=== PATIENT | female | born 1955 | race Caucasian/White ===

== ENCOUNTER 2016-05-04 21:23 | Day surgery (SDC) | payer MEDICARE ==
[~2016-05-04] VITALS: Ht 160 cm; Wt 96.2 kg
[2016-05-05 00:51] LABS: BASOPHILS 0.7 % (0.0-2.0); EOSINOPHILS 1.9 % (0-7); HEMATOCRIT 42.3 % (36.0-48.0); IMMATURE GRANULOCYTES 0.4 % (0-5); LYMPHOCYTES 15.2 % (15-50); MCH 31.5 pg (26.0-34.0); MCHC 33.1 g/dL (31.0-37.0); MCV 95.1 fL (80.0-100.0); MONOCYTES 5.8 % (2-11); PLATELET COUNT 213 10x3/uL (130-400); RBC 4.45 10x6/uL (4.00-5.40); RDW 14.1 % (11.5-14.5); WBC 10.9 10x3/uL (4.8-10.8)
[2016-05-05 01:04] LABS: ALBUMIN 3.8 g/dL (3.4-5.0); ANION GAP 10.2 mmol/L (8-16); BILIRUBIN - TOTAL 0.21 mg/dL (0.2-1.3); CALCIUM 9.2 mg/dL (8.5-10.1); CARBON DIOXIDE 29.9 mmol/L (21.0-32.0); INR 0.97 (0.85-1.17); MAGNESIUM - SERUM 1.8 mg/dL (1.8-2.4); POTASSIUM - SERUM 4.1 mmol/L (3.5-5.1); PROTEIN - SERUM 7.5 g/dL (6.4-8.2); PROTIME 12.8 SECONDS (11.6-15.0)
--- NOTE | 2016-05-05 02:45 | NUR ---
RECEIVED PT VIA WC FROM ER, PT TO ROOM 1214, PT TRANSFERS SELF TO BED WITH NO DIFFICULTY, IV IN RIGHT FA INTACT WITH NO REDNESS OR EDEMA, D5LR TO PUMP INFUSING AT 75ML/HR, ADMITTING ASSESSMENT, HISTORY AND MED REC INITIATED
[2016-05-05] MEDS ORDERED: ADVAIR 250/501 DISK INH (02:57)
[2016-05-05] MEDS ORDERED: COMBIVENT RESPIM4 GM INH (02:58)
[2016-05-05] MEDS ORDERED: SPIRIVA RESPIMAT4 G1 INH (03:03)
[2016-05-05] MEDS ORDERED: HYDROCODONE-APA1 TAB PO (03:05)
[2016-05-05] MEDS ORDERED: SOMA350 MG PO (03:08)
[2016-05-05 03:28] VITALS: BP 117/80; BMI 37.6
--- NOTE | 2016-05-05 03:34 | NUR ---
ADMITTING ASSESSMENT, HISTORY AND MED REC FINISHED, PT UP TO BR WITH ASSISTANCE, GAIT STEADY, VOIDED BY SELF WITH NO DIFFICULTY, PT BACK TO BED, PT INFORMED THAT I WILL INITIATED MORPHINE AUTOMOTIVE UPHOLSTERER, PT RATES LEFT WRIST PAIN 10/01, PT ORIENTED TO ROOM, BED IN LOW POSITION, SIDE RAILS X 2, CALL LIGHT IN REACH
--- NOTE | 2016-05-05 03:45 | NUR ---
MORPHINE READINESS PARAPROFESSIONAL INITIATED, PT INST ON AND VERBALIZES UNDERSTANDING OF READINESS PARAPROFESSIONAL, PT PUSHES READINESS PARAPROFESSIONAL AT THIS TIME, PT PROVIDED FAN FOR COMFORT, WET WASH CLOTH PROVIDED FOR DRY MOUTH, PT INST AGAIN ON NPO, DENIES FURTHER NEEDS AT THIS TIME
--- NOTE | 2016-05-05 04:05 | NUR ---
THIS RN CALLED LYNNETTE LEE RN, TO SEE WHO RESP WAS ON, LYNNETTE LEE RN STATES THAT SHE WOULD NOTIFY RESP FOR ME
--- NOTE | 2016-05-05 04:07 | NUR ---
PT SIGNED RELEASE OF RESPONSIBILITY FOR BED/CHAIR ALARM, PT INST ON FALL RISKS, VERBALIZES UNDERSTANDING, YELLOW BAND AND SKID SOCKS APPLIED, PT STATES "I BETTER GET UP TO THE BR AGAIN, PT UP TO BR, GAIT STEADY, VOIDED BY SELF WITH NO DIFFICULTY, PT BACK TO BED, WET WARM WASH CLOTH PROVIDED FOR HAND, RESP TO ROOM, PT DENIES FURTHER NEEDS
--- NOTE | 2016-05-05 04:09 | NUR ---
RESP PAGED W/IMMEDIATE RETURN OF PAGE. NOTIFIED OF PT'S SCHEDULED UPDRAFT DUE AT 3AM, HAS NOT REC'D YET. ROOM NUMBER AND NAME GIVEN TO RESP THERAPIST.
--- NOTE | 2016-05-05 06:10 | NUR ---
PT MECHANICAL ARTIST LIGHT, PT UP TO BR, VOIDED BY SELF WITH NO DIFFICULTY, PT BACK TO BED, DENIES FURTHER NEEDS AT THIS TIME
--- NOTE | 2016-05-05 07:00 | NUR ---
SHIFT REPORT TO DAY SHIFT
[2016-05-05 08:43] VITALS: Ht 160 cm; Wt 96.2 kg
--- NOTE | 2016-05-05 08:43 | NUR ---
PT IS TAKEN TO OR VIA STRETCHER. PRE OP MEDS WERE GIVEN AND SURGICAL PACKET WAS COMPLETED.
[2016-05-05] MEDS ORDERED: PERCOCET 10/3251 TA1 PO (11:01)
[2016-05-05 11:18] VITALS: BP 129/96
--- NOTE | 2016-05-05 12:00 | NUR ---
PT WAS RECEIVED FROM SURGERY ON A STRETCHER. MOVED HER TO HER BED.SHE HAS A SPLINT ON HER LEFT ARM WITH A SLING. SHE CAN MOVE HER FINGERS AND HAS GOOD CAPILLARY REFILL LEFT HAND. VSS. STABLE. NEW ORDERS NOTED.
--- NOTE | 2016-05-05 13:00 | NUR ---
PT UP TO VOID. SHE IS DOING WELL. SHE STATES THAT SHE IS NOT HAVING ANY PAIN AT THIS TIME.
--- NOTE | 2016-05-05 14:12 | NUR ---
TRIED TO BEEP DR LANCE X 2. NO ANSWER. CALLED HIS CABIN CLEANING SUPERVISOR, BRITTANEY AND SHE STATES THAT SHE WILL DISCHARGE HER.
--- NOTE | 2016-05-05 15:00 | NUR ---
PT WAS DISCHARGED AND TAKEN TO THE FRONT DOOR BY WHEELCHAIR TO HER VEHICLE. PTS DISCHARGE INSTRUCTIONS WERE DISCUSSED AND GIVEN HANDOUTS TO HER AND FU APPT AND PRESCRIPTIONS.
--- NOTE | 2016-05-24 11:14 | OP ---
PATIENT NAME: ADARSH VALDERRAMA MEDICAL RECORD: [id number] :57 LOCATION:[facility] ADMISSION DATE: SURGEON: ESHA LANCE MD DATE OF OPERATION: 05/05/2016 PREOPERATIVE DIAGNOSIS: Distal radius fracture. POSTOPERATIVE DIAGNOSIS: Distal radius fracture. PROCEDURE: Open reduction internal fixation of distal radius fracture. SURGEON: Esha Lance MD ANESTHESIA: General. INTRAOPERATIVE COMPLICATIONS: None. SUMMARY OF PATHOLOGIC FINDINGS: Displaced distal radius fracture consistent with the preoperative diagnosis. OPERATIVE SUMMARY IN DETAIL: After obtaining the appropriate preoperative orthopedic surgery consent as well as anesthetic consultation, evaluation and clearance, the patient was brought to the operating room and placed in the operating table in supine position. After adequate general laryngeal mask airway was administered, tourniquet was placed about the proximal aspect of the right upper extremity. Right upper extremity was then prepped and draped in routine sterile fashion. The arm was elevated, exsanguinated and tourniquet was inflated to 250 mmHg. Curvilinear incision was made in keeping with Reinaldo's volar approach, taken down along the flexor carpal radialis. A flap was then carried back down past the carpal tunnel, which was released. The fracture was then identified. The fracture was reduced and held in place provisionally by a K-wire. At this point, the [place] Stratus plate was then utilized and placed under direct fluoroscopy. Serial and sequential drill and fill was utilized with a combination of compression and locking screws. This resulted in excellent anatomic yazidi of the distal radius. Having completed this, AP and lateral views were sent for radiologist's verification. The wound was copiously irrigated and then closed with 2-0 Vicryl followed by 4-0 Prolene in running fashion. Sterile dressings were applied. The tourniquet was deflated. A volar splint was applied. The patient was awakened, taken to recovery room in stable condition. All final needle and sponge counts were correct. TRANSINT:[id number] Voice Confirmation ID: [id number] DOCUMENT ID: [id number] ESHA LANCE MD at 1114 CC: [id number] DICTATION DATE: 05/23/16 1840 FRONT OFFICE AGENT: 05/23/16 2345 [facility] 05/05/16 [facility] [address] [place] [address]
== END 2016-05-05 15:00 | disposition home or self-care (01) ==
LOC: OBSVTIME → D.ER 21:23 → D.WS 05-05 01:06 → OBSVTIME 05-05 01:06 → EDSTATUS 05-05 11:30 → D.ER 05-05 15:00 → D.WS 05-05 15:00
PROVIDERS: Emergency Medicine
DX: S52.502A Unspecified fracture of the lower end of left radius, initial encounter for closed fracture (principal); W07.XXXA Fall from chair, initial encounter; F17.200 Nicotine dependence, unspecified, uncomplicated; I25.10 Atherosclerotic heart disease of native coronary artery without angina pectoris; J44.9 Chronic obstructive pulmonary disease, unspecified; Z95.1 Presence of aortocoronary bypass graft

== ENCOUNTER 2016-07-28 07:02 | Day surgery (SDC) | payer MEDICARE ==
[2016-07-27 11:07] LABS: HEMATOCRIT 44.2 % (36.0-48.0); HEMOGLOBIN 14.7 g/dL (12-16); MCHC 33.3 g/dL (31.0-37.0); MCV 96.1 fL (80.0-100.0); MEAN PLATELET VOLUME 10.4 fL (7.4-10.4); RBC 4.6 10x6/uL (4.00-5.40); RDW 13.2 % (11.5-14.5); WBC 6.5 10x3/uL (4.8-10.8)
[~2016-07-28 07:02] MED LIST: ADVAIR 250/501 DISK INH; COMBIVENT RESPIM4 GM INH; HYDROCODONE-APA1 TAB PO; PERCOCET 10/3251 TA1 PO; SOMA350 MG PO; SPIRIVA RESPIMAT4 G1 INH
[2016-07-28 08:07] VITALS: BP 120/84; BMI 35.5
[2016-07-28] MEDS ORDERED: HYDROCODONE-APA1 TAB PO (10:44)
--- NOTE | 2016-07-28 12:07 | OP ---
PATIENT NAME: ADARSH VALDERRAMA MEDICAL RECORD: [id number] :57 LOCATION:[facility] ADMISSION DATE: SURGEON: ESHA LANCE MD DATE OF OPERATION: 07/28/2016 PREOPERATIVE DIAGNOSIS: Painful hardware of the left wrist. POSTOPERATIVE DIAGNOSIS: Painful hardware of the left wrist. PROCEDURE: Removal of distal radial plate of the left wrist. SURGEON: Esha Lance MD. ANESTHESIA: General. INTRAOPERATIVE COMPLICATIONS: None. SUMMARY OF PATHOLOGIC FINDINGS: Essentially none. OPERATIVE SUMMARY IN DETAIL: After obtaining the appropriate preoperative orthopedic surgery consent as well as anesthetic consultation, evaluation and clearance, the patient was brought to the operating room and placed on the operating table in supine position. After general laryngeal mask was administered, tourniquet was placed about the proximal aspect of the left upper extremity. Left upper extremity was then prepped and draped in routine sterile fashion. The arm was elevated and exsanguinated, tourniquet inflated to 350 mmHg. Radiographs were taken before incision, both AP and lateral planes, submitted for radiology review. Incision was made, taken down to the level of the median nerve, which was identified and protected throughout the case. Having completed this, the flexor tendons in their entirety were held aside using a dull Weitlaner retractor. Dissection was then carried down to the plate itself, it was completely exposed. Serial and sequential removal of the screws were then followed by removal of the plate. X-ray was taken again, both AP and lateral planes, showed that all hardware had been removed. The wound was copiously irrigated and closed with 2-0 Vicryl followed by 4-0 Prolene in running fashion. Sterile dressings were applied. Tourniquet was deflated. The patient was awakened and taken to recovery room in stable condition. All final needle and sponge counts were correct. TRANSINT:[id number] Voice Confirmation ID: [id number] DOCUMENT ID: [id number] CASI XIONG, ESHA DAHL at 1207 CC: [id number] DICTATION DATE: 07/28/16 0948 POPULATION HEALTH COACH: 07/28/16 [id number] [place] [address]
--- NOTE | 2016-07-28 13:04 | NUR ---
8895 DISCHARGE INSTRUCTIONS REVIEWED WITH PATIENT; VERBALIZED UNDERSTANDING
[2016-11-22] MEDS ORDERED: COMBIVENT RESPIM4 GM INH (13:41)
== END 2016-07-28 11:20 | disposition home or self-care (01) ==
LOC: D.OPS 07:02
PROVIDERS: Anesthesiology
DX: T84.84XA Pain due to internal orthopedic prosthetic devices, implants and grafts, initial encounter (principal); J44.9 Chronic obstructive pulmonary disease, unspecified; G47.30 Sleep apnea, unspecified; Z95.5 Presence of coronary angioplasty implant and graft; M19.90 Unspecified osteoarthritis, unspecified site

== ENCOUNTER 2016-11-24 05:57 | Day surgery (SDC) | payer MEDICARE ==
[2016-11-22 14:17] LABS: HEMATOCRIT 42.4 % (36.0-48.0); MCH 31.5 pg (26.0-34.0); MCV 95.5 fL (80.0-100.0); MEAN PLATELET VOLUME 10.7 fL (7.4-10.4); RBC 4.44 10x6/uL (4.00-5.40); RDW 13.3 % (11.5-14.5); WBC 6.6 10x3/uL (4.8-10.8)
[2016-11-22 14:37] LABS: CALC OSMOLALITY 282 mosm/kg (275-300); CALCIUM 8.9 mg/dL (8.5-10.1); CARBON DIOXIDE 30.8 mmol/L (21.0-32.0); CHLORIDE - SERUM 104 mmol/L (98-107); CREATININE - SERUM 0.7 mg/dL (0.6-1.3); GLUCOSE 102 mg/dL (74-106); POTASSIUM - SERUM 4.4 mmol/L (3.5-5.1); SODIUM 142 mmol/L (136-145); UREA NITROGEN 13 mg/dL (7-18); eGFR NON AFRICAN AMERICAN 90 mL/min (90-120)
[~2016-11-24] VITALS: Ht 160 cm; Wt 86.2 kg
[2016-11-24 06:19] VITALS: BP 109/69; Ht 160 cm; Wt 86.2 kg
[2016-11-24] MEDS ORDERED: HYDROCODONE-APA1 TAB PO (08:19)
--- NOTE | 2016-11-24 10:06 | NUR ---
0955 DISCHARGE INSTRUCTIONS GIVEN. PRESCRIPTION FOR NORCO GIVEN. NO QUESTIONS OR CONCERNS AT THIS TIME. ESCORTED OUT BY VOLUNTEER.
--- NOTE | 2016-11-27 16:46 | OP ---
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 PROCEDURE: Cubital tunnel release, left elbow. SURGEON: Esha Lance MD. ANESTHESIA: General. INTRAOPERATIVE COMPLICATIONS: None. SUMMARY OF PATHOLOGIC FINDINGS: The patient had tight contractures about the ulnar nerve at the elbow consistent with preoperative EMGs and NCVs. OPERATIVE SUMMARY IN DETAIL: After obtaining the appropriate preoperative orthopedic surgery consent as well as anesthetic consultation, evaluation and clearance, the patient was brought to the operating room and placed on the operating table in supine position. After general laryngeal mask was administered, tourniquet was placed about the proximal aspect of the left upper extremity. The patient's left upper extremity was prepped and draped in routine sterile fashion. The arm was elevated, exsanguinated and tourniquet was inflated to 250 mmHg. A curvilinear incision was made between the medial epicondyle and olecranon. This was taken down gently to the fascial plane covering the ulnar nerve, which was identified in its entirety and incised using a very small pair of scissors and then, release of all fibrous adhesions about the ulnar nerve was completed. The wound was irrigated and closed with 2-0 Vicryl followed by skin peter. Sterile dressings were applied. The patient was awakened, taken to recovery in stable condition. All final needle and sponge counts were correct. TRANSINT:[id number] Voice Confirmation ID: [id number] DOCUMENT ID: [id number] ESHA LANCE MD at 1646 CC: [id number] DICTATION DATE: 11/24/16 0947 RETAIL GREETER: 11/24/16 1050 [facility] 11/24/[address] [address]
== END 2016-11-24 09:55 | disposition home or self-care (01) ==
LOC: D.OPS 05:57 → D.PAN 08:55 → D.OPS 08:55 → D.PAN 09:00 → D.OPS 09:55
PROVIDERS: Anesthesiology
DX: G56.22 Lesion of ulnar nerve, left upper limb (principal); F17.200 Nicotine dependence, unspecified, uncomplicated; J44.9 Chronic obstructive pulmonary disease, unspecified; Z95.5 Presence of coronary angioplasty implant and graft; G47.30 Sleep apnea, unspecified; Z01.812 Encounter for preprocedural laboratory examination

== ENCOUNTER → 2019-02-21 09:08 | Outpatient (CLI) | payer MEDICARE ==
[2016-11-24 06:19] VITALS: BMI 33.7
--- NOTE | 2019-02-27 14:07 | ST ---
PATIENT:ADARSH VALDERRAMA MEDICAL RECORD: [id number] SEX: F LOCATION:[facility] ORDER #: ADMISSION DATE: 02/21/19 AGE OF PATIENT: 63 REFERRING PHYSICIAN: INTERPRETING PHYSICIAN: ANGY DIEHL MD DATE OF SERVICE: 02/21/2019 INDICATION: Angina, coronary artery disease, shortness of breath, obesity. TECHNIQUE: The patient was exercised on standard Lexiscan protocol with 33 mCi of sestamibi injected at peak stress, 11 mCi used previously for rest images. FINDINGS: Gated SPECT reveals preserved ejection fraction at 74% with good thickening and brightening throughout all segments. SPECT imaging Cardiolite was used as myocardial perfusion agent. There appears to be a fixed perfusion defect inferiorly compatible with previous inferior myocardial infarction; however, this could be artifactual secondary to her size and diaphragmatic attenuation especially, due to the fact that there is good thickening and brightening of the inferior segments on gated SPECT. The remaining segments with homogeneous uptake at rest and stress. OVERALL IMPRESSION: Minimally abnormal nuclear stress test only showing a fixed perfusion defect inferiorly on SPECT imaging, most likely artifactual from diaphragmatic attenuation and the patient's size. Either way, there is no evidence of reversible ischemia present and ejection fraction preserved at 74%. Continue cardiac risk factors. TRANSINT:[id number] Voice Confirmation ID: [id number] DOCUMENT ID: [id number] ANGY DIEHL MD at 1407 CC: RIGOBERTO FRANKS MD [id number] DICTATION DATE: 02/22/19 1453 WASTE WATER OPERATOR: 02/23/19 0756 [facility] CLI 02/21/[address] [address]
--- NOTE | 2019-02-27 14:07 | EC ---
PATIENT:ADARSH VALDERRAMA DATE OF SERVICE: 02/21/19 SEX: F MEDICAL RECORD: [id number] DATE OF : 57 [facility] AGE OF PAT[facility]: 63 ADMISSION DATE: 02/21/19 REFERRING PHYSICIAN: INTERPRETING PHYSICIAN: ANGY GARCIA MD ECHOCARDIOGRAM REPORT ECHO CHARGES 4 ECHO COMPLETE Date: 02/21/19 CLINICAL DIAGNOSIS: ANGINA/SOB/ECHEVARRIA H/O CAD/COPD ECHOCARDIOGRAPHIC MEASUREMENTS (adult normal given) AC root (d.<3.7cm) 2.7 cm LV Septum d (<1.2 cm> 1.4 cm Valve Excursion 1.1 cm LV Septum (systole) 1.9 cm Left Atria (s.<4.0cm> 3.1 cm LVPW d(<1.2cm) 1.2 cm RV (d.<2.3cm) 2.4 cm LVPW (sytole) 1.8 cm LV diastole(<5.6CM) 6.0 cm MV E-F(>70mm/sec) cm LV systole 3.7 cm LVOT Diameter 1.8 cm MV exc.(>10mm) cm Est.ejection fraction (50-75%) % DOPPLER: LVIT cm/sec A 83.0 cm/sec E 90.0 cm/sec LA cm/sec RVSP 16.0 mmHg LVOT 95.0 cm/sec AOP1/2T m/s Asc. Ao 120 cm/sec RVOT 47.0 cm/sec RA cm/sec PA 89.0 cm/sec AV Gradient Peak 5.8 mmHg AV Mean 3.2 mmHg AV Area 2.1 cm MV Gradient Peak 3.5 mmHg MV Mean 1.7 mmHg MV Area cm COMMENTS: OP - HC Refurbish Technician: 1 DALE SANTOSOE Editor Map: 1 Dr. Garcia TAPE# PACS Pericardial Effusion N DATE OF SERVICE: PROCEDURE: Echocardiogram. FINDINGS: 1. Left ventricular chamber size is mildly dilated. Left ventricular systolic function is preserved at 55% to 60%. 2. Left atrium, right atrium, and right ventricle chamber sizes are within normal limits. 3. Valvular structures have normal structure and motion. ECHOCARDIOGRAM REPORT [id number] ADARSH VALDERRAMA 4. Doppler interrogation only reveals trace to mild tricuspid regurgitation, no other valvular insufficiency or stenosis. Pulmonary systolic pressure is normal estimated 16 mmHg. 5. No evidence of pericardial effusion or left ventricular thrombus. TRANSINT:[id number] Voice Confirmation ID: [id number] DOCUMENT ID: [id number] ANGY GARCIA MD at 1407 CC: [id number] DICTATION DATE: 02/22/19 1053 DIETITIAN TEACHING: 02/22/19 1133 [facility] CLI 02/21/19 [id number] [place] [address]
== END | disposition home or self-care (01) ==
LOC: D.HCCECHO 09:08
PROVIDERS: ATTEND Internal Medicine Interventional Cardiology
DX: I25.10 Atherosclerotic heart disease of native coronary artery without angina pectoris (principal); R06.09 Other forms of dyspnea

== ENCOUNTER 2019-10-28 07:36 | Day surgery (SDC) | payer MEDICARE ==
[2019-10-25 10:13] LABS: HEMATOCRIT 42.9 % (36.0-48.0); HEMOGLOBIN 14.1 g/dL (12-16); MCH 31.8 pg (26.0-34.0); MCHC 32.9 g/dL (31.0-37.0); MCV 96.8 fL (80.0-100.0); MEAN PLATELET VOLUME 10.3 fL (7.4-10.4); RBC 4.43 10x6/uL (4.00-5.40); RDW 13.4 % (11.5-14.5); WBC 5.6 10x3/uL (4.8-10.8)
[2019-10-25 10:30] LABS: CALC OSMOLALITY 279 mosm/kg (275-300); CALCIUM 8.8 mg/dL (8.5-10.1); CARBON DIOXIDE 29.6 mmol/L (21.0-32.0); CHLORIDE - SERUM 104 mmol/L (98-107); CREATININE - SERUM 0.6 mg/dL (0.6-1.3); GLUCOSE 107 mg/dL (74-106); POTASSIUM - SERUM 4.3 mmol/L (3.5-5.1); SODIUM 140 mmol/L (136-145); UREA NITROGEN 15 mg/dL (7-18); eGFR NON AFRICAN AMERICAN > 90 mL/min (90-120)
[~2019-10-28] VITALS: Ht 152.4 cm; Wt 94.8 kg
[~2019-10-28 07:36] MED LIST changes: +ANORO ELLIPTA1 EACH INH; +GABAPENTIN300 MG PO; +METFORMIN HCL500 M1 PO; +MOBIC7.5 MG PO
[2019-10-28 08:08] VITALS: BP 126/48; Ht 152.4 cm; Wt 94.8 kg
--- NOTE | 2019-10-28 09:12 | NUR ---
0910 BLOCK COMPLETE, REPORT FROM DEDRA OROZCO PROPERTY STAFF ACCOUNTANT, PT. DROWSY BUT VERBAL, LAYING ON LEFT SIDE, O2 5L NC. MONITORS ON.
--- NOTE | 2019-10-28 09:20 | NUR ---
0920 PT SNORING, O2 5L NC, PULSE OX 100%, MONITORING CONTINUING. LAYING ON LEFT SIDE.
[2019-10-28] MEDS ORDERED: HYDROCODON-ACE1 EA10 PO (10:40)
--- NOTE | 2019-10-30 08:27 | OP ---
PATIENT NAME: ADARSH VALDERRAMA MEDICAL RECORD: [id number] :57 LOCATION:[facility] ADMISSION DATE: SURGEON: ESHA LANCE MD DATE OF OPERATION: 10/28/2019 PREOPERATIVE DIAGNOSES: 1. Rotator cuff tear of the right shoulder. 2. Impingement syndrome of the right shoulder. 3. Biceps tendinitis of the right shoulder. POSTOPERATIVE DIAGNOSES: 1. Rotator cuff tear of the right shoulder. 2. Impingement syndrome of the right shoulder. 3. Biceps tendinitis of the right shoulder. PROCEDURES: 1. Arthroscopic rotator cuff repair. 2. Arthroscopic biceps tenotomy. 3. Arthroscopic distal clavicle excision done through separate incision - 1 cm. 4. Arthroscopic subacromial decompression with acromioplasty and bursectomy all of the right shoulder. SURGEON: Esha Lance MD NEUROLOGIST: MANISH Perez INTRAOPERATIVE COMPLICATIONS: None. SUMMARY OF PATHOLOGIC FINDINGS: Consistent with the patient's preoperative MRI, this patient had a terrible shoulder on the inside. Essentially had torn the biceps tendon practically completely in half, had a large labral tear, a large rotator cuff tear, impingement syndrome and acromioclavicular arthritis. 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 OPERATIVE SUMMARY IN DETAIL: After obtaining the appropriate preoperative orthopedic surgery consent as well as anesthetic consultation, evaluation and clearance the patient was brought to the operating room and placed on table in supine position. After adequate general laryngeal mask was administered, the patient was placed in left lateral decubitus position. All pressure points were well padded to include down leg peroneal pad as well as axillary roll. The patient was held firmly to the operating table using the vacuum pack suction system. Right upper extremity and shoulder were then prepped and draped in routine sterile fashion. The arm was held in the Arthrex traction boom at 30 degrees of forward flexion, 30 degrees of abduction with 10 pounds of traction laterally. At this point, the appropriate timeout was taken and agreed upon by all in the operative suite, given the patient's unique identifiers. Arthroscopy was established in the glenohumeral joint from the posterior portal. Anterior portal was established in the anterior safe interval. Diagnostic arthroscopy showed the patient to have the above findings. Serial and sequential debridement of the labrum as well as evaluation of the rotator cuff tear was done. Biceps tendon was tenotomized completely, it was almost completely torn. Having completed this, attention was turned to the subacromial space. While in the subacromial space, [place] surface tissue ablation system was utilized to denude the undersurface of the acromion of all soft tissue OPERATIVE REPORT [id number] ADARSH VALDERRAMA elements and release the coracoacromial ligament and acromioplasty was done firmly to the AC joint. Through a separate arthroscopic anterior portal, distal clavicle was excised for 1 cm using the 5-0 barrel bur. At this point, arthroscopically, the large rotator cuff tear was reapproximated in a [id number] fashion, tied to reapproximate the construct a 5.5 SwiveLock from Ar[employer] was utilized. Having completed this, arthroscopy portals were closed in routine interrupted fashion using 4-0 Prolene. Sterile dressings were applied. The patient was awakened and taken to the recovery room in stable condition. All final needle and sponge counts were correct. TRANSINT:[id number] Voice Confirmation ID: [id number] DOCUMENT ID: [id number] CASI XIONG, ESHA DAHL at 0827 CC: [id number] DICTATION DATE: 10/29/19 164 PLASTICS PLATER: 10/30/19 0142 [facility] 10/28/19 [id number] [place] [address]
== END 2019-10-28 12:30 | disposition home or self-care (01) ==
LOC: D.OPS 07:36 → D.PAN 08:30 → D.OPS 09:30 → D.PAN 10:20 → D.OPS 12:30 → D.PAN 12:30
PROVIDERS: Anesthesiology; ATTEND Orthopaedic Surgery
DX: M75.101 Unspecified rotator cuff tear or rupture of right shoulder, not specified as traumatic (principal); M75.41 Impingement syndrome of right shoulder; M75.21 Bicipital tendinitis, right shoulder

== ENCOUNTER → 2020-02-04 14:39 | Outpatient (CLI) | payer MEDICARE ==
[2019-10-28 08:08] VITALS: BMI 40.9
[~2020-02-04 14:39] MED LIST changes: +HYDROCODON-ACE1 EA10 PO
== END | disposition home or self-care (01) ==
LOC: D.MRI 14:39
PROVIDERS: ATTEND Orthopaedic Surgery
DX: M75.101 Unspecified rotator cuff tear or rupture of right shoulder, not specified as traumatic (principal)